=== PATIENT | female | born 1985 | race Caucasian/White ===

== ENCOUNTER 2018-03-15 14:21 | Emergency (ER) | payer MEDICAID ==
[~2018-03-15] VITALS: Ht 154.9 cm; Wt 69.9 kg
[2018-03-15 14:54] VITALS: Ht 154.9 cm; Wt 69.9 kg
[2018-03-15 16:52] LABS: BASOPHIL % 0.2 % (0-2); PLATELET COUNT 270 x10^3mcL (130-400); RED CELL DISTRIBUTION WIDTH 13.4 % (11.5-14.5)
[2018-03-15 17:00] LABS: CALCIUM 8.7 mg/dL (8.5-10.1); CARBON DIOXIDE 27.6 mmol/L (21-32); CHLORIDE SERUM 104 mmol/L (98-107); CREATININE SERUM 0.7 mg/dL (0.6-1.0); GFR1 > 60 mL/min; GLUCOSE SERUM 86 mg/dL (74-106); POTASSIUM SERUM 3.5 mmol/L (3.5-5.1); SODIUM SERUM 138 mmol/L (136-145)
[2018-03-15 17:05] LABS: ALBUMIN 4.4 g/dL (3.4-5.0); ALKALINE PHOSPHATASE 102 U/L (46-116); ALT/SGPT 27 U/L (14-59); AST/SGOT 15 U/L (15-37); BILIRUBIN TOTAL 0.37 mg/dL (0.20-1.00); LIPASE 112 IU/L (73-393)
[2018-03-15 17:06] LABS: TOTAL PROTEIN, SERUM 8.5 g/dL (6.4-8.2)
[2018-03-15 17:06] LABS: microscopic required? YES; urine erythrocyte TRACE (NEGATIVE)
[2018-03-15 21:26] VITALS: BP 104/71
== END 2018-03-15 18:00 | disposition home or self-care (01) ==
LOC: ED 14:21
PROVIDERS: Emergency Medicine
DX: K80.20 Calculus of gallbladder without cholecystitis without obstruction (principal); N13.30 Unspecified hydronephrosis
CPT/HCPCS: J1885; Q0092; Q0162